=== PATIENT | female | born 1945 | race Hispanic/Latino ===

== ENCOUNTER 2017-05-18 09:41 | Emergency (ER) | payer MEDICARE ==
[2017-05-18 09:47] VITALS: BMI 34.5
[2017-05-18 10:49] LABS: RBC URINE 266 /hpf (0-3); URINE BACTERIA OCC (<OCC); URINE BILIRUBIN NEGATIVE (NEGATIVE); URINE BLOOD 3+ (NEGATIVE); URINE COLOR Yellow (YELLOW); URINE GLUCOSE (UA) NORMAL (Normal); URINE KETONE NEGATIVE (NEGATIVE); URINE LEUKOCYTE ESTERASE 3+ Leu/uL (Negative); URINE PROTEIN 1+ mg/dL (NEGATIVE); URINE UROBILINOGEN NORMAL mg/dL (0.2-1.0); WBC CLUMPS FEW /hpf; WBC URINE 172 /hpf (0-5)
[2017-05-18 11:25] VITALS: PULSE 73; RESP 17; TEMP 98.4; O2SAT 95
[2017-05-18 11:30] VITALS: BP 150/80
--- NOTE | 2017-05-18 11:42 | C.PDOC ---
History Of Present Illness 71 yr old female presents to the ER stating she noticed blood in the urine today. Patient also states she has the need to keep going to the bathroom. Denies history of kidney stone, fever, chills, nausea, vomiting, abdominal pain , vaginal discharge, vaginal bleeding, weakness or numbness. Time Seen by Provider: 05/18/17 09:57 Chief Complaint (Nursing): Female Genitourinary History Per: Patient History/Exam Limitations: no limitations Onset/Duration Of Symptoms: Days Past Medical History Reviewed: Historical Data, Nursing Documentation, Vital Signs Vital Signs: Last Vital Signs Temp 98.4 F 05/18/17 11:24 Pulse 73 05/18/17 11:24 Resp 17 05/18/17 11:24 BP 150/80 05/18/17 11:29 Pulse Ox 95 05/18/17 13:18 - Medical History PMH: Asthma, HTN Family History: States: No Known Family Hx - Social History Hx Tobacco Use: No Hx Alcohol Use: No Hx Substance Use: No - Immunization History Hx Tetanus Toxoid Vaccination: Yes Hx Influenza Vaccination: No (2014) Hx Pneumococcal Vaccination: Yes (2012) Review Of Systems Except As Marked, All Systems Reviewed And Found Negative. Constitutional: Negative for: Fever, Chills Gastrointestinal: Negative for: Nausea, Vomiting, Abdominal Pain Genitourinary: Positive for: Hematuria. Negative for: Vaginal Discharge, Vaginal Bleeding Neurological: Negative for: Weakness, Numbness Physical Exam - Physical Exam Appears: Non-toxic, No Acute Distress Skin: Warm, Dry, No Rash Head: Atraumatic, Normacephalic Chest: Symmetrical, No Tenderness Cardiovascular: Rhythm Regular, No Murmur Respiratory: Normal Breath Sounds, No Rales, No Rhonchi, No Stridor, No Wheezing Gastrointestinal/Abdominal: Normal Exam, Soft, No Tenderness, No Guarding, No Rebound Extremity: Normal ROM, No Swelling Neurological/Psych: Oriented x3, Normal Speech Gait: Steady ED Course And Treatment O2 Sat by Pulse Oximetry: 95 (RA) Pulse Ox Interpretation: Normal - Other Rad CXR X-Ray: Viewed By Me, Read By Radiologist Interpretation: HISTORY: cough - r/o infiltrate. COMPARISON: No prior. TECHNIQUE: Chest PA and lateral. FINDINGS: LUNGS: No active pulmonary disease. PLEURA: No significant pleural effusion identified. No pneumothorax apparent. CARDIOVASCULAR: No radiographic findings to suggest acute or significant cardiovascular disease. OSSEOUS STRUCTURES: No significant abnormalities. VISUALIZED UPPER ABDOMEN: Normal. OTHER FINDINGS: None. IMPRESSION: No active disease. . Concordant results with the preliminary interpretation rendered by the emergency department physician\JAILYN at the conclusion of the procedure. Medical Decision Making Medical Decision Making: PLAN: * CXR * Urinalysis * Macrobid PO Disposition - Disposition Referrals: Louann Coleman MD [Staff Provider] - Disposition: HOME/ ROUTINE Disposition Time: 10:50 Condition: GOOD Additional Instructions: Thank you for letting us take care of you today. Your provider was Dr. Thornton. You were treated for a bladder infection. The emergency medical care you received today was directed at your acute symptoms. If you were prescribed any medication, please fill it and take as directed. It may take several days for your symptoms to resolve. Return to the Emergency Department if your symptoms worsen, do not improve, or if you have any other problems. Please contact your doctor or call one of the physicians/clinics you have been referred to that are listed on the Patient Visit Information form that is included in your discharge packet. Bring any paperwork you were given at discharge with you along with any medications you are taking to your follow up visit. Our treatment cannot replace ongoing medical care by a primary care provider (PCP) outside of the emergency department. Thank you for allowing the [facility] team to be part of your care today. Follow up with Dr. Coleman for outpatient care in 3-4 days. Prescriptions: Nitrofurantoin Macrocrystals [Macrobid] 100 mg PO BID #14 cap Instructions: Urinary Tract Infection in Women (ED) Forms: [facility] ([place]) - Clinical Impression Clinical Impression: Cystitis - Scribe Statement The provider has reviewed the documentation as recorded by the Marvibhaley Vincent Provider Attestation: All medical record entries made by the Marvibhaley were at my direction and personally dictated by me. I have reviewed the chart and agree that the record accurately reflects my personal performance of the history, physical exam, medical decision making, and the department course for this patient. I have also personally directed, reviewed, and agree with the discharge instructions and disposition.
--- NOTE | 2017-05-18 12:44 | RAD ---
HISTORY: cough - r/o infiltrate COMPARISON: No prior. TECHNIQUE: Chest PA and lateral FINDINGS: LUNGS: No active pulmonary disease. PLEURA: No significant pleural effusion identified. No pneumothorax apparent. CARDIOVASCULAR: No radiographic findings to suggest acute or significant cardiovascular disease. OSSEOUS STRUCTURES: No significant abnormalities. VISUALIZED UPPER ABDOMEN: Normal. OTHER FINDINGS: None. IMPRESSION: No active disease. Concordant results with the preliminary interpretation rendered by the emergency department physician procedure.
== END 2017-05-18 11:30 | disposition home or self-care (01) ==
LOC: C.ER 09:41
DX: N30.90 Cystitis, unspecified without hematuria (principal); I10 Essential (primary) hypertension

== ENCOUNTER 2018-12-29 12:53 | Outpatient (CLI) | payer MEDICARE | END 2018-12-29 12:54 | disposition home or self-care (01) | LOC: C.RADIC 12:53 | DX: J45.901 Unspecified asthma with (acute) exacerbation (principal) ==